=== PATIENT | male | born 1970 | race African-American/Black ===

== ENCOUNTER → 2017-03-04 | Outpatient (CLI) | payer OTHER ==
[~2017-03-04] MED LIST: CLONIDINE0.1 PO; IBUPROFEN 800800 M1 PO; VALIUM2 MG PO
== END ==
LOC: RAD 10:18
DX: Z01.818 Encounter for other preprocedural examination (principal); I10 Essential (primary) hypertension; J98.11 Atelectasis; J98.4 Other disorders of lung

== ENCOUNTER → 2017-06-14 | Outpatient (CLI) | payer OTHER | LOC: MRI 05:55 | DX: M54.12 Radiculopathy, cervical region (principal) ==

== ENCOUNTER → 2017-10-09 | Outpatient (CLI) | payer OTHER | LOC: MRI 13:41 | DX: M47.896 Other spondylosis, lumbar region (principal); M48.061 Spinal stenosis, lumbar region without neurogenic claudication ==

== ENCOUNTER → 2021-07-24 | Outpatient (CLI) | payer OTHER ==
[~2021-07-24] MED LIST changes: +AVAPRO300 MG PO; +GABAPENTIN 100100 MG PO
== END ==
LOC: SJCVC 14:40
PROVIDERS: ATTEND Internal Medicine
DX: I10 Essential (primary) hypertension (principal); E78.00 Pure hypercholesterolemia, unspecified; G47.33 Obstructive sleep apnea (adult) (pediatric); K21.9 Gastro-esophageal reflux disease without esophagitis; E78.5 Hyperlipidemia, unspecified; E66.9 Obesity, unspecified; Z82.49 Family history of ischemic heart disease and other diseases of the circulatory system; Z79.899 Other long term (current) drug therapy

== ENCOUNTER → 2021-09-04 | Outpatient (CLI) | payer OTHER | LOC: SJCVCIMAG 07:56 | PROVIDERS: ATTEND Internal Medicine | DX: I10 Essential (primary) hypertension (principal); E78.00 Pure hypercholesterolemia, unspecified; G47.33 Obstructive sleep apnea (adult) (pediatric); K21.9 Gastro-esophageal reflux disease without esophagitis; E78.5 Hyperlipidemia, unspecified; Z82.49 Family history of ischemic heart disease and other diseases of the circulatory system; Z79.899 Other long term (current) drug therapy ==

== ENCOUNTER 2021-09-30 20:19 | Emergency (ER) | payer OTHER ==
[~2021-09-30] VITALS: Ht 175.3 cm; Wt 135.6 kg
[2021-09-30 21:30] LABS: ABSOLUTE NEUTROPHILS 3.3 thou/uL (1.4-8.2); BASOPHILS 0.8 % (0.0-2.0); EOSINOPHILS 5.4 % (0.0-3.0); HEMATOCRIT 42.3 % (42.0-52.0); HEMOGLOBIN 13.6 gm/dL (14.0-18.0); LYMPHOCYTES 25.1 % (24.0-44.0); MCH 25.8 pg (26.0-34.0); MCHC 32.1 g/dL (28.0-37.0); MCV 80.4 fL (80.0-100.0); MONOCYTES 7.8 % (1.0-8.0); PLATELET COUNT 240 thou/uL (150-400); POLYS 60.9 % (36.0-66.0); RBC 5.26 mil/uL (4.50-6.00); RDW 15.9 % (10.5-14.5); WBC 5.5 thou/uL (4.0-11.0)
[2021-09-30 21:53] LABS: POTASSIUM 3.6 mmol/L (3.5-5.1)
[2021-09-30 21:56] LABS: ALBUMIN 3.5 g/dL (3.4-5.0); TOTAL BILIRUBIN 0.6 mg/dL (0.2-1.0); TOTAL PROTEIN 7.9 g/dL (6.4-8.2)
[2021-09-30 23:52] VITALS: BP 151/91
--- NOTE | 2021-10-03 07:11 | EKG ---
[address] [address] ELECTROCARDIOGRAM REPORT Name: BON HONEYCUTT [id number] Admission: 09/30/21 Attend Phys: Discharge: 09/30/21 Date of : 72 Report #: [id number] [facility] ED Test Date: 2021-09-30 Test Time: 20:28:16 Pat Name: BON HONEYCUTT Department: Room: Gender: Fire Medic: : 1970 Requested By: Isac Maldonado Order Number: [id number] MD: Jone Claire Measurements Intervals [place] Rate: 77 P: 0 IA: 166 QRS: -4 QRSD: 91 T: 27 QT: 394 QTc: 446 Interpretive Statements Sinus rhythm Compared to ECG 04/06/2013 20:27:40 Prolonged QT interval no longer present Electronically Signed On 10-03-2021 7:10:52 [employer] by Jone Claire [email or web address] <ELECTRONICALLY SIGNED> By: Jone Claire MD, [facility] 10/03/21 0710 27 27 Jone Claire MD, FACC /EPI
== END 2021-09-30 23:50 | disposition home or self-care (01) ==
LOC: ER 20:19
PROVIDERS: Emergency Medicine
DX: R07.89 Other chest pain (principal); I10 Essential (primary) hypertension; Z98.890 Other specified postprocedural states; Z79.899 Other long term (current) drug therapy

== ENCOUNTER → 2021-12-05 | Outpatient (CLI) | payer OTHER | LOC: SJCVC 10:35 | PROVIDERS: ATTEND Internal Medicine | DX: I10 Essential (primary) hypertension (principal); E78.00 Pure hypercholesterolemia, unspecified; G47.33 Obstructive sleep apnea (adult) (pediatric); K21.9 Gastro-esophageal reflux disease without esophagitis; E78.5 Hyperlipidemia, unspecified; Z82.49 Family history of ischemic heart disease and other diseases of the circulatory system; Z79.899 Other long term (current) drug therapy ==